=== PATIENT | male | born 1935 | race Caucasian/White ===

== ENCOUNTER 2016-11-06 11:50 | Outpatient (CLI) | payer MEDICARE, BC ==
[2015-07-24 11:57] VITALS: O2SAT 95
== END 2016-11-06 11:51 | disposition home or self-care (01) | DRG 556 ==
LOC: CONVCARE 11:50
PROVIDERS: ATTEND Orthopaedic Surgery
DX: M25.551 Pain in right hip (principal)

== ENCOUNTER 2017-01-14 08:29 | Inpatient (IN) | payer MEDICARE, BC ==
[2017-01-14] MEDS ORDERED: MORPHINE SULFATE 0.5 MG/ML SOL ONE (08:44)
[2017-01-14] MEDS ORDERED: FENTANYL 100MCG/2ML SOL ONE (08:45)
[2017-01-14] MEDS ORDERED: MIDAZOLAM 2 MG/2 ML SOL ONE (08:45)
[2017-01-14] MEDS ORDERED: SCOPOLAMINE 1.5MG PATCH TD SCH (09:00)
[2017-01-14] MEDS ORDERED: LACTATED RINGERS 1,000 ML IV ONE (09:00)
[2017-01-14] MEDS ORDERED: LACTATED RINGERS 1,000 ML IV SCH (10:00)
[2017-01-14] MEDS ORDERED: TRANEXAMIC ACID 100 MG/ML SOL ONE (10:34)
[2017-01-14] MEDS ORDERED: SODIUM CHLORIDE 20 ML 40 ML ONE (10:35)
[2017-01-14] MEDS ORDERED: BUPIVACAINE LIPOSOME 20 ML SUS ONE (10:35)
[2017-01-14] MEDS ORDERED: DEXAMETHASONE 20 MG/5 ML (4 MG/ML SOL) ONE (11:52)
[2017-01-14] MEDS ORDERED: CEFAZOLIN SODIUM 1 GM PDS ONE ×2 (11:52→18:33)
[2017-01-14] MEDS ORDERED: EPHEDRINE SULFATE 50 MG/ML SOL ONE (11:52)
[2017-01-14] MEDS ORDERED: METOCLOPRAMIDE HYDROCHLORIDE 5 MG/ML SOL ONE (11:55)
[2017-01-14] MEDS ORDERED: DIAZEPAM 5 MG TAB PO PRN (13:03)
[2017-01-14] MEDS ORDERED: ONDANSETRON 4 MG ODT BU PRN (13:03)
[2017-01-14] MEDS ORDERED: MORPHINE SULFATE 10 MG/ML SOL IM PRN (13:03)
[2017-01-14] MEDS ORDERED: MAGNESIUM HYDROXIDE 30 ML SUS PO PRN (13:03)
[2017-01-14] MEDS ORDERED: HYDROMORPHONE HCL 2 MG/ML SOL IV PRN (13:03)
[2017-01-14] MEDS ORDERED: SODIUM CHLORIDE 0.9% 500 ML 500 ML IV PRN (13:03)
[2017-01-14] MEDS ORDERED: ONDANSETRON HCL 4 MG/2 ML SOL IV PRN (13:03)
[2017-01-14] MEDS ORDERED: BISACODYL 10 MG SUP PR PRN (13:03)
[2017-01-14] MEDS ORDERED: DIPHENHYDRAMINE 50 MG/ML SOL IV PRN (13:03)
[2017-01-14] MEDS ORDERED: ALUMINUM/MAGNESIUM 30 ML SUS PO PRN (13:03)
[2017-01-14] MEDS ORDERED: FLEET ENEMA PR PRN (13:03)
[2017-01-14] MEDS: SODIUM CHLORIDE 0.9% FLUSH 10 ML SOL IV SCH ×2 (15:09→21:21)
[2017-01-14] MEDS: DEXTROSE/SALINE 0.45% 1,000 ML IV SCH (15:13)
[2017-01-14] MEDS ORDERED: SODIUM CHLORIDE 0.9% 100 ML 100 ML IV ONE (18:33)
[2017-01-14] MEDS: CEFAZOLIN SODIUM 1 GM PDS 2 GM in SODIUM CHLORIDE 0.9% 100 ML 100 ML IV SCH (18:58)
[2017-01-14] MEDS: NICOTINE 21 MG PATCH TD SCH (19:00)
[2017-01-14] MEDS: SENNOSIDES A AND B 8.6 MG TAB PO SCH (20:00)
[2017-01-14] MEDS: FLUTICASONE/SALMETEROL 250/50 1 PUFF DSK INH SCH (20:00)
[2017-01-14] MEDS: APAP/OXYCODONE 325/5 TAB PO PRN (22:09)
[2017-01-15] MEDS ORDERED: CEFAZOLIN SODIUM 1 GM PDS ONE (01:18)
[2017-01-15] MEDS ORDERED: SODIUM CHLORIDE 0.9% 100 ML 100 ML IV ONE (01:18)
[2017-01-15] MEDS: DEXTROSE/SALINE 0.45% 1,000 ML IV SCH (01:50)
[2017-01-15] MEDS: CEFAZOLIN SODIUM 1 GM PDS 2 GM in SODIUM CHLORIDE 0.9% 100 ML 100 ML IV SCH (03:05)
[2017-01-15] MEDS: APAP/OXYCODONE 325/5 TAB PO PRN ×7 (03:06→20:34)
[2017-01-15] MEDS: SODIUM CHLORIDE 0.9% FLUSH 10 ML SOL IV SCH ×3 (05:09→20:31)
[2017-01-15 07:22] LABS: MEAN CORPUSCULAR HGB CONC 35.3 gm/dl (32.0-36.0)
[2017-01-15] MEDS ORDERED: ALBUTEROL NEB SOL 2.5MG/3ML 1 VIAL SOL NEB PRN (07:41)
[2017-01-15] MEDS: FLUTICASONE/SALMETEROL 250/50 1 PUFF DSK INH SCH ×2 (09:22→20:31)
[2017-01-15] MEDS: DILTIAZEM CD 300 MG PO SCH (09:24)
[2017-01-15] MEDS: RIVAROXABAN 10 MG TAB PO SCH (09:25)
[2017-01-15] MEDS: PREDNISONE 5 MG TAB PO SCH (09:25)
[2017-01-15] MEDS: NICOTINE 21 MG PATCH TD SCH (17:53)
[2017-01-15] MEDS: SENNOSIDES A AND B 8.6 MG TAB PO SCH (20:31)
[2017-01-16] MEDS: APAP/OXYCODONE 325/5 TAB PO PRN ×3 (06:28→12:29)
[2017-01-16 07:35] LABS: MEAN CORPUSCULAR HGB CONC 36.6 gm/dl (32.0-36.0)
[2017-01-16] MEDS: SODIUM CHLORIDE 0.9% FLUSH 10 ML SOL IV SCH ×2 (09:11→12:29)
[2017-01-16] MEDS: FLUTICASONE/SALMETEROL 250/50 1 PUFF DSK INH SCH (09:11)
[2017-01-16] MEDS: RIVAROXABAN 10 MG TAB PO SCH (09:11)
[2017-01-16] MEDS: PREDNISONE 5 MG TAB PO SCH (09:11)
[2017-01-16] MEDS: DILTIAZEM CD 300 MG PO SCH (09:11)
[2017-01-16 12:08] VITALS: BP 102/54; PULSE 78; RESP 18; TEMP 97.6
[2017-01-16 13:39] VITALS: O2SAT 96
== END 2017-01-16 14:35 | disposition home or self-care (01) | DRG 470 ==
LOC: ACUTE CARE 08:29
PROVIDERS: ADMIT Orthopaedic Surgery; ATTEND Orthopaedic Surgery
PROC: F01ZDFZ Gait and/or Balance Assessment using Assistive, Adaptive, Supportive or Protective Equipment (ICD-10-PCS; 2017-01-14)
PROC: F01ZBZZ Bed Mobility Assessment (ICD-10-PCS; 2017-01-14)
PROC: F01ZCZZ Transfer Assessment (ICD-10-PCS; 2017-01-14)
PROC: 0SR902A Replacement of Right Hip Joint with Metal on Polyethylene Synthetic Substitute, Uncemented, Open Approach (ICD-10-PCS; principal; 2017-01-14 11:00)
PROC: F02Z1ZZ Dressing Assessment (ICD-10-PCS; 2017-01-15)
PROC: F02Z0ZZ Bathing/Showering Assessment (ICD-10-PCS; 2017-01-15)
PROC: F02Z3ZZ Grooming/Personal Hygiene Assessment (ICD-10-PCS; 2017-01-15)
DX: M16.11 Unilateral primary osteoarthritis, right hip (principal); Z96.641 Presence of right artificial hip joint; I10 Essential (primary) hypertension; M35.3 Polymyalgia rheumatica; J43.9 Emphysema, unspecified
CPT/HCPCS: 36415; 73501; 73502; 85027; 94150; 99070; J0690; J1100; J2250; J2274; J2765; J3010; J7603; A6232; L1830

== ENCOUNTER 2017-03-04 13:07 | Outpatient (CLI) | payer MEDICARE, BC ==
[2017-01-15 20:26] VITALS: O2SAT 95
== END 2017-03-04 13:08 | disposition home or self-care (01) | DRG 561 ==
LOC: CONVCARE 13:07
PROVIDERS: ATTEND Orthopaedic Surgery
DX: Z47.1 Aftercare following joint replacement surgery (principal); Z96.641 Presence of right artificial hip joint
CPT/HCPCS: 72170; 73502